=== PATIENT | male | born 1965 | race Caucasian/White ===

== ENCOUNTER 2017-12-01 11:25 | Emergency (ER) ==
--- NOTE | 2017-12-01 11:34 | ED.PDOC ---
General ED Provider: Dr. KHADAR MACDONALD Chief Complaint: Dizziness Stated Complaint: DIZZINESS -SUDDEN ONSET ASSOCIATED WITH NAUSEA AND DEVELOPING DIAPHORESIS. DENIED CHEST PAIN. STATED SIMILAR TO PREVIOUS SYMPTOMS THAT WHEN WORKED UP REVEALED SIGNIFICANT CAD, DEVELOPED CARDIAC ARREST AND EVENTUAL 3-4 STENTS AND PACEMAKER. LAST VISIT BY SPIRAL TUBE WINDER IN [facility] LAST MONTH Time Seen by Physician: 11:35 Mode of Arrival: Walk-In Information Source: Patient Exam Limitations: No limitations Nursing and Triage Documentation Reviewed and Agree: Yes Does patient meet sepsis criteria?: No System Inflammatory Response Syndrome: Not Applicable Sepsis Protocol: For patient's 13 years and over: Temp is 96.8 and below OR 101 and greater Pulse >90 BPM Resp >20/minute Acutely Altered Mental Status Are patient's symptoms suggestive of a new infection, such as: -Pneumonia -Skin, Soft Tissue -Endocarditis -UTI -Bone, Joint Infection -Implantable Device -Acute Abdominal Infection -Wound Infection -Meningitis -Blood Stream Catheter Infection -Unknown Review of Systems - Review Of Systems Constitutional: Reports: No symptoms, Diaphoresis Eyes: Reports: No symptoms Ears, Nose, Mouth, Throat: Reports: No symptoms Respiratory: Reports: No symptoms Cardiac: Reports: No symptoms GI: Reports: No symptoms : Reports: No symptoms Musculoskeletal: Reports: No symptoms Skin: Reports: No symptoms Neurological: Reports: No symptoms Endocrine: Reports: No symptoms Hematologic/Lymphatic: Reports: No symptoms All Other Systems: Reviewed and Negative Past Medical History - Past Medical History Previously Healthy: No Endocrine: Reports: Dyslipidemia Cardiovascular: Reports: CAD, Hypertension Respiratory: Reports: None Hematological: Reports: None Gastrointestinal: Reports: None Genitourinary: Reports: None Neuro/Psych: Reports: None Musculoskeletal: Reports: None Cancer: Reports: None - Surgical History General Surgical History: Reports: Stent, Pacemaker - Family History Family History: Reports: Heart, Hypertension - Social History Smoking Status: Never smoker Hx Substance Use: No Alcohol Screening: Occasionally Physical Exam - Physical Exam Appearance: Ill-appearing Ill-appearing: Mild Pain Distress: Mild Eyes: EDUARDO, EOMI, Conjunctiva clear ENT: Ears normal, Nose normal, Oropharynx normal, Rhinorrhea (Tenderness to palpation over RT Maxillary and Frontal Sinus region ) Neck: Supple Respiratory: Airway patent, Breath sounds clear, Breath sounds equal, Respirations nonlabored Cardiovascular: RRR, Pulses normal, No rub, No murmur GI/: Soft, Nontender, No masses, Bowel sounds normal, No Organomegaly Musculoskeletal: Normal strength, ROM intact, No edema, No calf tenderness Skin: Diaphoretic Neurological: Sensation intact, Motor intact, Reflexes intact, Cranial nerves intact, Alert, Oriented Psychiatric: Affect appropriate, Mood appropriate Interpretation - Radiology Interpretation Radiology Interpretation By: Radiologist Radiology Results: Negative Exam Interpreted: CT Scan (Abdomen: Fatty Liver; non obstructive tiny renal calculus, small fatty diaphrgamatic hernia), Other (CT Head: Sinusitis) Re-Evaluation - Re-Evaluation Time of Re-Evaluation: 16:15 Status: Improved Vital Signs Stable: Yes Appearance: NAD Lungs: Clear Skin: Warm and Dry Neuro: Alert and Oriented X3 CV: RRR Critical Care Note - Critical Care Note Total Time (mins): 60 Course - Course Hematology/Chemistry: 12/01/17 11:25 12/01/17 11:25 Orders, Labs, Meds: Lab Review 12/01/17 12/01/17 12/01/17 11:25 11:25 11:25 WBC 7.22 RBC 5.01 Hgb 14.8 Hct 41.0 L MCV 81.8 MCH 29.5 MCHC 36.1 H RDW Coeff of Vanesa 13.2 Plt Count 185 Immature Gran % (Auto) 0.4 Neut % (Auto) 75.6 Lymph % (Auto) 15.8 [place] % (Auto) 6.1 Eos % (Auto) 1.4 Baso % (Auto) 0.7 Immature Gran # (Auto) 0.0 Neut # (Auto) 5.5 Lymph # (Auto) 1.1 [place] # (Auto) 0.4 Eos # (Auto) 0.1 Baso # (Auto) 0.1 D-Dimer (Manual) Sodium 139 Potassium 3.7 Chloride 106 Carbon Dioxide 22 Anion Gap 14.7 BUN 11 Creatinine 0.78 Estimated GFR (MDRD) 104.00 BUN/Creatinine Ratio 14.10 Glucose 152 H Calcium 9.3 Total Bilirubin 2.1 H AST 25 ALT 47 Alkaline Phosphatase 191 H Total Creatine Kinase 45 Troponin I < 0.0100 B-Natriuretic Peptide 18 Total Protein 7.3 Albumin 4.1 Globulin 3.2 Albumin/Globulin Ratio 1.28 Urine Color Urine Clarity Urine pH Ur Specific [place] Urine Protein Urine Glucose (UA) Urine Ketones Urine Blood Urine Nitrite Urine Bilirubin Urine Urobilinogen Ur Leukocyte Esterase Urine Microscopic WBC Ur Squamous Epith Cells Urine Mucus Urine Opiates Screen Ur Oxycodone Screen Urine Methadone Screen Ur Propoxyphene Screen Ur Barbiturates Screen U Tricyclic Antidepress Ur Phencyclidine Scrn Ur Amphetamine Screen U Methamphetamines Scrn U Benzodiazepines Scrn Urine Cocaine Screen U Cannabinoids Screen 12/01/17 12/01/17 12/01/17 11:25 12:15 12:15 WBC RBC Hgb Hct MCV MCH MCHC RDW Coeff of Vanesa Plt Count Immature Gran % (Auto) Neut % (Auto) Lymph % (Auto) [place] % (Auto) Eos % (Auto) Baso % (Auto) Immature Gran # (Auto) Neut # (Auto) Lymph # (Auto) [place] # (Auto) Eos # (Auto) Baso # (Auto) D-Dimer (Manual) 266.08 Sodium Potassium Chloride Carbon Dioxide Anion Gap BUN Creatinine Estimated GFR (MDRD) BUN/Creatinine Ratio Glucose Calcium Total Bilirubin AST ALT Alkaline Phosphatase Total Creatine Kinase Troponin I B-Natriuretic Peptide Total Protein Albumin Globulin Albumin/Globulin Ratio Urine Color Yellow Urine Clarity Clear Urine pH 6.0 Ur Specific [place] 1.025 Urine Protein Trace Urine Glucose (UA) 1+ Urine Ketones Trace Urine Blood Negative Urine Nitrite Negative Urine Bilirubin Negative Urine Urobilinogen 0.2 Ur Leukocyte Esterase Negative Urine Microscopic WBC 0-2 Ur Squamous Epith Cells Not present Urine Mucus 1+ Urine Opiates Screen Negative Ur Oxycodone Screen Negative Urine Methadone Screen Negative Ur Propoxyphene Screen Negative Ur Barbiturates Screen Negative U Tricyclic Antidepress Negative Ur Phencyclidine Scrn Negative Ur Amphetamine Screen Negative U Methamphetamines Scrn Negative U Benzodiazepines Scrn Negative Urine Cocaine Screen Negative U Cannabinoids Screen Negative Orders Category Date Time Status EKG-(ED ONLY) Stat CARDIO 12/01/17 11:31 Completed IV [ED IV/MEDIPORT/POWERPORT] .ONCE EMERGENCY 12/01/17 11:31 Active BNP [B-TYPE NATRIURETIC PEPTIDE] Stat LAB 12/01/17 11:25 Completed CBC W/ AUTO DIFF Stat LAB 12/01/17 11:25 Completed CMP [COMPREHENSIVE METABOLIC PANEL] Stat LAB 12/01/17 11:25 Completed CPK [CREATINE KINASE] Stat LAB 12/01/17 11:25 Completed D-DIMER Stat LAB 12/01/17 11:25 Completed TROPONIN I Stat LAB 12/01/17 11:25 Completed UA [URINALYSIS C & S IF INDICATED] Stat LAB 12/01/17 12:15 Completed URINE DRUG SCREEN (RAPID FOR ED) [DRUG SCREEN, URINE, LAB 12/01/17 12:15 Completed RAPID] Stat 0.9 % Sodium Chloride [Saline Flush] MEDS 12/01/17 11:30 Discontinued 1 syr IVF PRN PRN Meclizine HCl [Antivert] MEDS 12/01/17 13:07 Discontinued 25 mg PO ONCE STA Ondansetron HCl/Pf [Zofran 4 mg/2 ml] MEDS 12/01/17 13:55 Discontinued 4 mg IVP ONCE STA CHEST, 1V AP ONLY Stat RADS 12/01/17 11:[address] ABDOMEN/PELVIS WO CONTRAST Stat RADS 12/01/17 13:[address] HEAD W/O CONTRAST Stat RADS 12/01/17 15:08 Completed Medications Discontinued Medications Generic Name Dose Route Start Last Admin Trade Name Freq PRN Reason Stop Dose Admin Meclizine HCl 25 mg 12/01/17 13:07 12/01/17 15:10 Antivert PO 12/01/17 13:08 25 mg ONCE STA Administration Ondansetron HCl 4 mg 12/01/17 13:55 12/01/17 14:00 Zofran 4 Mg/2 Ml IVP 12/01/17 13:56 4 mg ONCE STA Administration Sodium Chloride 1 syr 12/01/17 11:30 Saline Flush IVF PRN PRN To flush IV Vital Signs: Temp Pulse Resp BP Pulse Ox 12/01/17 11:25 97.3 F L 61 20 132/87 97 TYRONE Risk Score Age >/= 65: No >/= 3 CAD Risk Factors: Yes Known CAD (Stenosis >/= 50%): Yes ASA Use in Past 7 Days: No Severe Angina (>/= 2 episodes in 24 hours): No EKG ST Changes >/= 0.5mm: No Postive Cardiac Marker: No TYRONE Total Score: 2 TYRONE Risk Score: Risk Score Odds of by 30D 0 0.1 (0.1-0.2) 1 0.3 (0.2-0.3) 2 0.4 (0.3-0.5) 3 0.7 (0.6-0.9) 4 1.2 (1.0-1.5) 5 2.2 (1.9-2.6) 6 3.0 (2.5-3.6) 7 4.8 (3.8-6.1) Departure - Departure Time of Disposition: 16:15 Disposition: HOME SELF-CARE Discharge Problem: Dizziness, Maxillary sinusitis, acute, Sphenoid sinusitis Instructions: Sinusitis (ED), Dizziness (ED) Condition: Good Pt referred to PMD for follow-up: Yes IPMP verified?: No Additional Instructions: Take meds as directed Mucinex 1 twice daily May use OTC Flonase AQ daily Follow up PCP in 1 week Maintain dietary restrictions of Fat Prescriptions: Amoxicillin/Potassium Clav [Augmentin Xr 1,000-62.5 Tab] 1 each PO BID #28 tab.er.12h Meclizine HCl 25 mg PO TID PRN #30 tablet PRN Reason: Dizziness Ondansetron [Zofran Odt] 4 mg PO Q8H PRN #10 tab.rapdis PRN Reason: Nausea / Vomiting Prednisone 10 mg PO DIRECTED #28 tablet Allergies/Adverse Reactions: Allergies No Known Allergies Allergy (Unverified 12/01/17 11:32) Home Medications: Ambulatory Orders Amoxicillin/Potassium Clav [Augmentin Xr 1,000-62.5 Tab] 1 each PO BID #28 tab.er.12h 12/01/17 Aspirin 81 mg PO DAILY 12/01/17 Atorvastatin Calcium 80 mg PO DAILY 12/01/17 Meclizine HCl 25 mg PO TID PRN #30 tablet 12/01/17 Metoprolol Succinate 50 mg PO DAILY 12/01/17 Ondansetron [Zofran Odt] 4 mg PO Q8H PRN #10 tab.rapdis 12/01/17 Prednisone 10 mg PO DIRECTED #28 tablet 12/01/17 Disposition Discussed With: Patient Neurological Complaint Exam - Dizziness Complaint/Exam Onset: Sudden Duration: 1-2 HRS Symptoms Are: Resolved Timing: Constant Initial Severity: Severe Current Severity: Mild Character: Reports: Weak, Dizzy Aggravating: Reports: None Alleviating: Reports: Rest Associated Signs and Symptoms: Reports: Nausea, Diaphoresis, Loss of balance. Denies: Palpitations, Unsteady gait, Visual changes Cardiac Risk Factors: Reports: Hypertension, CAD CVA Risk Factors: Reports: Hypertension, CAD Related Surgical History: Reports: Cardiac Cath, PTCA JVD Present: No Carotid Bruit Present: No Nystagmus Present: No Gag Reflex Present: No Meningeal Signs Positive: No Focal Weakness: Present: None Focal Sensory Loss: Present: None Gait: Normal Differential Diagnoses: CAD, Metabolic abnormalities, Seizure Quality Indicators for AMI: EKG in 10min.
[2017-12-01 11:35] VITALS: BP 132/87; TEMP 97.3; BMI 28.8
--- NOTE | 2017-12-01 12:18 | DI ---
EXAM: Single frontal view of the chest HISTORY: Chest pain. COMPARISON: None FINDINGS: Cardiomediastinal silhouette is upper limit of normal. There is a left chest wall generato r pack with lead wires overlying the right atrium right ventricle. There is no pneumothorax or effus ion. There is no consolidation, nodule or mass. The osseous structures are unremarkable. IMPRESSION: No acute cardiopulmonary process.
[2017-12-01] MEDS ORDERED: ANTIVERT PO STA (13:07)
[2017-12-01] MEDS ORDERED: ZOFRAN 4 MG/2 ML IVP STA (13:55)
--- NOTE | 2017-12-01 14:10 | CT ---
EXAM: CT ABDOMEN AND PELVIS HISTORY: Nausea, elevated liver enzymes and bilirubin TECHNIQUE: CT abdomen and pelvis without intravenous contrast. Images were reconstructed using 5 mm section thickness. Reformations were prepared. COMPARISON: None FINDINGS: Mild fatty infiltration of the liver is suggested. No focal hepatic lesions or evidence of intrahepa tic biliary dilatation. Spleen within normal limits. The gallbladder appears normal by CT. Pancrea s is within normal limits. No adrenal masses. There is a tiny 2 mm calculus within the left kidney. No hydronephrosis. Ureters are clear. Normal abdominal aorta. There is what appears to represent a small diaphragmatic hernia at the gastroesophageal junction with peritoneal fat extending into the lower mediastinum. There is no hiatal hernia. The stomach appear s normal and the appendix is unremarkable. Nonobstructive bowel gas pattern. Urinary bladder and pr ostate appear normal. There is no ascites. Mildly fatty left inguinal canal. Bones reveal no acute abnormality. Lung bases are clear. No pneum operitoneum. IMPRESSION: 1. Mild fatty infiltration of the liver. No focal hepatic lesions or intrahepatic biliary dilatatio n. Gallbladder, common bile duct and pancreas appear normal. Given history, consider further workup . 2. Tiny left renal calculus. No hydronephrosis. 3. Small fatty diaphragmatic hernia.
--- NOTE | 2017-12-01 15:43 | CT ---
EXAM: CT Head HISTORY: Persistent dizziness with nausea COMPARISON: None TECHNIQUE: CT head performed without contrast FINDINGS: There is no mass effect, midline shift, or intracranial hemmorhage. Wells white differenti ation is preserved. There is no extra-axial collection. The ventricles, sulci, and basal cisterns a re patent and symmetric. There is no depressed calvarial fracture. The mastoid air cells are clear. Near complete opacification of the right maxillary sinus. Frothy mucosal thickening in the right sp henoid sinus. Mild mucosal thickening ethmoid air cells. IMPRESSION: 1. No acute intracranial abnormality. 2. Sinusitis with near complete opacification of the right maxillary sinus and frothy mucosal thicke gagandeep in the right sphenoid sinus which suggests acute sinusitis.
== END 2017-12-01 16:51 | disposition home or self-care (01) ==
LOC: ED 11:25
DX: J01.00 Acute maxillary sinusitis, unspecified (principal); J01.30 Acute sphenoidal sinusitis, unspecified; R42 Dizziness and giddiness; I25.10 Atherosclerotic heart disease of native coronary artery without angina pectoris; I10 Essential (primary) hypertension; E78.5 Hyperlipidemia, unspecified; I25.2 Old myocardial infarction; Z95.5 Presence of coronary angioplasty implant and graft; Z95.0 Presence of cardiac pacemaker
CPT/HCPCS: 36415; 80053; 80306; 81001; 82550; 83880; 84484; 85025; 85379; 93005; 93010; 96374; 99283